=== PATIENT | male | born 2000 ===

== ENCOUNTER 2019-01-25 23:16 | Emergency (ER) | payer BC ==
--- NOTE | 2019-01-25 23:45 | ED ---
Shortness of Breath - HPI Summary HPI Summary: This patient is a 18 year old M presenting to [facility] with a chief complaint of intermittent SOB lasting 1 hr per episode since 01/21/19. Symptoms aggravated by nothing. Symptoms alleviated by nothing. Pt reports all day SOB today. Reports no prior similar symptoms experienced but does report chest tightness some time back (nothing like this). Pt reports sitting down doing homework during onset when he felt like he could not breath. Pt reports he got up and drank water to distract himself which calmed him down but that the SOB was still there. Pt reports he feels winded during these episodes. Denies passing out but reports feeling like he will especially today. Denies numbness or tingling in hands or feet. - History of Current Complaint Chief Complaint: EDShortnessOfBreath Time Seen by Provider: 01/25/19 23:35 Hx Obtained From: Patient Onset/Duration: Lasting Days, Still Present Timing: Intermittent Episodes Lasting: - 1 hr Aggravating Factors: Nothing Alleviating Factors: Nothing Associated Signs & Symptoms: Negative - denies syncope, nnumbness or tingling in hands or feet - Allergy/Home Medications Allergies/Adverse Reactions: Allergies Allergy/AdvReac Type Severity Reaction Status Date / Time No Known Allergies Allergy Verified 01/25/19 23:18 PMH/Surg Hx/FS Hx/Imm Hx Endocrine/Hematology History: Denies: Hx Diabetes Cardiovascular History: Denies: Hx Hypertension - Surgical History Surgery Procedure, Year, and Place: none Infectious Disease History: No Infectious Disease History: Denies: Traveled Outside the [place] in Last 30 Days - Family History Known Family History: Negative: Hypertension, Diabetes - Social History Alcohol Use: None Hx Substance Use: No Substance Use Type: Reports: None Hx Tobacco Use: No Smoking Status (MU): Never Smoked Tobacco Review of Systems Positive: Other - chest tightness Positive: Shortness Of Breath Negative: Numbness, Syncope All Other Systems Reviewed And Are Negative: Yes Physical Exam - Summary Physical Exam Summary: Appearance: Well-appearing, Well-nourished, lying in bed comfortably Skin: Warm, dry, no obvious rash Eyes: sclera anicteric, no conjunctival pallor ENT: mucous membranes moist, pharynx appears normal Neck: Supple, nontender Respiratory: Clear to auscultation, no signs of respiratory distress Cardiovascular: Normal S1, S2. No murmurs. Normal distal pulses in tibial and radial bilaterally. Abdomen: Soft, nontender, normal active bowel sounds present Musculoskeletal: Normal, Strength/ROM Intact Neurological: A&Ox3, awake and alert, mentation is normal, speech is fluent and appropriate Psychiatric: affect is normal, does not appear anxious or depressed Triage Information Reviewed: Yes Vital Signs On Initial Exam: Initial Vitals Temp Pulse Resp BP Pulse Ox 98.4 F 59 16 128/83 99 01/25/19 23:17 01/25/19 23:17 01/25/19 23:17 01/25/19 23:17 01/25/19 23:17 Vital Signs Reviewed: Yes Procedures - Sedation Patient Received Moderate/Deep Sedation with Procedure: No Diagnostics - Vital Signs Vital Signs Temp Pulse Resp BP Pulse Ox 01/25/19 23:17 98.4 F 59 16 128/83 99 - Laboratory Result Diagrams: 01/26/19 00:12 01/26/19 00:12 Lab Statement: Any lab studies that have been ordered have been reviewed, and results considered in the medical decision making process. - Radiology Chest X-Ray Radiology Interpretation Completed By: ED Physician Summary of Radiographic Findings: Per ED Physician,. no acute process. Pending official report. - EKG 0322 Cardiac Rate: NL - 60 BPM Summary of EKG Findings: NSR at 60 BPM, P waves, QRS complex, and T waves are within normal limits, T waves and intervals are normal, no ischemic changes. This is a normal EKG. Re-Evaluation - Re-Evaluation First Eval Re-Evaluation Time: 01:07 Comment: Pt agrees to discharge Course/Dx - Course Course Of Treatment: This patient is a 18 year old M presenting to [facility] with a chief complaint of intermittent SOB lasting 1 hr per episode since 01/21/19. Pt reports all day SOB today. Reports chest tightness some time back but nothing like this. Pt reports he feels winded during these episodes. Denies passing out but reports feeling like he will especially today. Denies numbness or tingling in hands or feet. Physical Exam Findings shows no abnormalities. An EKG reveals NSR at 60 BPM, P waves, QRS complex, and T waves are within normal limits, T waves and intervals are normal, no ischemic changes. This is a normal EKG. CXR reveals no acute process. Test results with no significant abnormalities expect for RBC 5.58 H. Patient will be discharged. The patient is agreeable with this plan. - Diagnoses Provider Diagnoses: Dyspnea Discharge ED - Sign-Out/Discharge Documenting (check all that apply): Patient Departure - discharge - Discharge Plan Condition: Stable Disposition: HOME Patient Education Materials: Dyspnea (ED) Referrals: [facility] [Outside] Additional Instructions: The tests we ran tonight all look normal, we did not find an organic cause for your breathing problems. Sometimes symptoms like this can be due to stress, but I would recommend you followup with the folks at [facility] if this does not improve over the next few days. - Billing Disposition and Condition Condition: STABLE Disposition: Home - Attestation Statements Document Initiated by Gasper: Yes Documenting Scribe: April Chirinos Provider For Whom Gasper is Documenting (Include Credential): Dr. Blake Covington MD Scribe Attestation: April Tyler, scribed for Dr. Blake Covington MD on 02/27/19 at 0527. Scribe Documentation Reviewed: Yes Provider Attestation: The documentation as recorded by the April joy accurately reflects the service I personally performed and the decisions made by me, Dr. Blake Covington MD Status of Scribe Document: Viewed
[2019-01-26 00:02] LABS: Urine Appearance Clear; Urine Bilirubin Negative (Negative); Urine Blood Negative (Negative); Urine Color Yellow; Urine Glucose Negative (Negative); Urine Ketones Negative (Negative); Urine Nitrite Negative (Negative); Urine Protein Negative (Negative); Urine Urobilinogen Negative (Negative)
[2019-01-26 00:19] LABS: ABS Eosinophils 0.1 10^3/ul (0-0.6); ABS Lymphocytes 2.4 10^3/ul (1.0-4.8); ABS Monocytes 0.5 10^3/ul (0-0.8); ABS Neutrophils 2.5 10^3/ul (1.5-7.7); Eosinophil % 2.3 %; Hematocrit 48 % (42-52); Hemoglobin 15.9 g/dL (14.0-18.0); Mean Corpuscular HGB Conc 33 g/dL (31-36); Mean Corpuscular Hemoglobin 29 pg (27-31); Mean Corpuscular Volume 86 fL (80-94); Mean Platelet Volume 8.1 fL (7.4-10.4); Nucleated Red Blood Cells % 0.1; Platelet Count 167 10^3/uL (150-450); Red Blood Count 5.58 10^6 /uL (4.18-5.48); Red Cell Distribution Width 13 % (10-15); White Blood Count 5.6 10^3/uL (3.5-10.8)
[2019-01-26 00:22] LABS: Urine Benzodiazepine Screen None Detected (None Detect); Urine Opiates Screen None Detected (None Detect)
[2019-01-26 00:39] LABS: Albumin 4.7 g/dL (3.2-5.2); Albumin/Globulin Ratio 1.7 (1-3); BUN/Creatinine Ratio 14.1 (8-20); Calcium 9.9 mg/dL (8.6-10.3); EGFR African American 128.2 (>60); Globulin 2.7 g/dL (2-4); Potassium 3.7 mmol/L (3.5-5.0); Total Bilirubin 0.6 mg/dL (0.2-1.0); Total Protein 7.4 g/dL (6.4-8.9)
[2019-01-26 00:51] LABS: TSH (Thyroid Stimulating Horm) 1.49 mcIU/mL (0.34-5.60)
[2019-01-26 01:07] VITALS: BP 114/80
== END 2019-01-26 01:10 | disposition home or self-care (01) ==
LOC: ED 23:16
DX: R06.00 Dyspnea, unspecified (principal)
CPT/HCPCS: 36415; 71046; 80053; 80307; 81003; 84443; 84484; 85025; 93005; 99282